=== PATIENT | male | born 1930 | race Two or more races ===

== ENCOUNTER → 2017-03-07 09:51 | Outpatient (CLI) | payer OTHER ==
[~2017-03-07 09:51] MED LIST: ASA81 MG PO; AVAPRO300 MG PO; AVAPRO75 MG PO; Avapro PO; CARVEDILOL3.125 MG PO; CIPRO500 MG PO; COZAAR100 MG PO; Cozaar PO; IMODIUM A-D2 MG PO; IRON1TAB4 PO; LIPITOR20 MG PO; LOPRESSOR 25 MG PO; PANTOPRAZOLE SO40 MG PO; PEPCID40 MG PO; PLAVIX 75MG PO; PLAVIX75 MG PO; TAMS0.4C PO; TRIPLE ANTIBIOT15 GM TP; ZOFRAN4 MG PO; [UNRECOGNIZED DRUG - OTHER]; [UNRECOGNIZED DRUG - OTHER]
== END | disposition home or self-care (01) ==
LOC: LAB 09:51
DX: D55.0 Anemia due to glucose-6-phosphate dehydrogenase [G6PD] deficiency (principal); Z92.3 Personal history of irradiation; R59.0 Localized enlarged lymph nodes; C16.9 Malignant neoplasm of stomach, unspecified; K30 Functional dyspepsia; E78.2 Mixed hyperlipidemia; R10.13 Epigastric pain; D50.0 Iron deficiency anemia secondary to blood loss (chronic); E11.65 Type 2 diabetes mellitus with hyperglycemia; E03.0 Congenital hypothyroidism with diffuse goiter; K59.09 Other constipation

== ENCOUNTER 2017-04-10 10:21 | Outpatient (CLI) | payer OTHER | END 2017-04-10 10:29 | disposition home or self-care (01) | LOC: LAB 10:21 | DX: N39.0 Urinary tract infection, site not specified (principal); R97.20 Elevated prostate specific antigen [PSA]; C61 Malignant neoplasm of prostate; D64.89 Other specified anemias ==

== ENCOUNTER → 2017-06-20 10:38 | Outpatient (CLI) | payer OTHER | END | disposition home or self-care (01) | LOC: LAB 10:38 | DX: D55.0 Anemia due to glucose-6-phosphate dehydrogenase [G6PD] deficiency (principal); R53.83 Other fatigue; C16.8 Malignant neoplasm of overlapping sites of stomach; R59.0 Localized enlarged lymph nodes; Z92.3 Personal history of irradiation; K30 Functional dyspepsia; K59.09 Other constipation ==

== ENCOUNTER 2017-07-02 13:15 | Outpatient (CLI) | payer OTHER | END 2017-07-02 13:33 | disposition home or self-care (01) | LOC: LAB 13:15 | DX: C61 Malignant neoplasm of prostate (principal) ==

== ENCOUNTER → 2017-09-11 10:47 | Outpatient (CLI) | payer OTHER | END | disposition home or self-care (01) | LOC: LAB 10:47 | DX: D64.89 Other specified anemias (principal); D55.0 Anemia due to glucose-6-phosphate dehydrogenase [G6PD] deficiency; D53.1 Other megaloblastic anemias, not elsewhere classified; E51.8 Other manifestations of thiamine deficiency; R74.0 Nonspecific elevation of levels of transaminase and lactic acid dehydrogenase [LDH]; I10 Essential (primary) hypertension ==

== ENCOUNTER 2017-11-26 09:51 | Outpatient (CLI) | payer OTHER | END 2017-11-26 10:21 | disposition home or self-care (01) | LOC: LAB 09:51 | DX: I10 Essential (primary) hypertension (principal); E78.4 Other hyperlipidemia; E07.89 Other specified disorders of thyroid; D55.0 Anemia due to glucose-6-phosphate dehydrogenase [G6PD] deficiency; E53.1 Pyridoxine deficiency; E78.2 Mixed hyperlipidemia; R74.0 Nonspecific elevation of levels of transaminase and lactic acid dehydrogenase [LDH]; E51.8 Other manifestations of thiamine deficiency; D55.8 Other anemias due to enzyme disorders; C16.8 Malignant neoplasm of overlapping sites of stomach ==

== ENCOUNTER 2018-02-07 13:03 | Outpatient (CLI) | payer OTHER | END 2018-02-07 13:10 | disposition home or self-care (01) | LOC: LAB 13:03 | DX: C61 Malignant neoplasm of prostate (principal); N39.0 Urinary tract infection, site not specified ==

== ENCOUNTER 2018-02-18 10:44 | Outpatient (CLI) | payer OTHER | END 2018-02-18 10:52 | disposition home or self-care (01) | LOC: LAB 10:44 | DX: D55.0 Anemia due to glucose-6-phosphate dehydrogenase [G6PD] deficiency (principal); R53.83 Other fatigue ==

== ENCOUNTER 2018-05-06 09:50 | Outpatient (CLI) | payer OTHER | END 2018-05-06 13:49 | disposition home or self-care (01) | LOC: LAB 09:50 | DX: D55.0 Anemia due to glucose-6-phosphate dehydrogenase [G6PD] deficiency (principal); R74.0 Nonspecific elevation of levels of transaminase and lactic acid dehydrogenase [LDH]; C16.9 Malignant neoplasm of stomach, unspecified; R53.83 Other fatigue ==

== ENCOUNTER 2018-07-15 10:00 | Outpatient (CLI) | payer OTHER | END 2018-07-16 14:32 | disposition home or self-care (01) | LOC: LAB 10:00 | DX: D55.0 Anemia due to glucose-6-phosphate dehydrogenase [G6PD] deficiency (principal); D69.6 Thrombocytopenia, unspecified; R74.0 Nonspecific elevation of levels of transaminase and lactic acid dehydrogenase [LDH] ==

== ENCOUNTER 2018-08-13 08:25 | Outpatient (CLI) | payer OTHER | END 2018-08-13 08:39 | disposition home or self-care (01) | LOC: LAB 08:25 | DX: E03.8 Other specified hypothyroidism (principal); D55.0 Anemia due to glucose-6-phosphate dehydrogenase [G6PD] deficiency; R74.0 Nonspecific elevation of levels of transaminase and lactic acid dehydrogenase [LDH]; C20 Malignant neoplasm of rectum; N40.0 Benign prostatic hyperplasia without lower urinary tract symptoms; N39.0 Urinary tract infection, site not specified; Z85.028 Personal history of other malignant neoplasm of stomach; I10 Essential (primary) hypertension ==

== ENCOUNTER 2018-10-09 08:38 | Outpatient (CLI) | payer OTHER | END 2018-10-09 08:56 | disposition home or self-care (01) | LOC: LAB 08:38 | DX: D53.0 Protein deficiency anemia (principal); D55.0 Anemia due to glucose-6-phosphate dehydrogenase [G6PD] deficiency; D63.1 Anemia in chronic kidney disease; E03.8 Other specified hypothyroidism; D69.6 Thrombocytopenia, unspecified; Z85.020 Personal history of malignant carcinoid tumor of stomach; C18.0 Malignant neoplasm of cecum; N40.0 Benign prostatic hyperplasia without lower urinary tract symptoms; Z85.46 Personal history of malignant neoplasm of prostate ==

== ENCOUNTER 2018-12-05 12:13 | Outpatient (CLI) | payer OTHER | END 2018-12-05 15:00 | disposition home or self-care (01) | LOC: LAB 12:13 | DX: D55.0 Anemia due to glucose-6-phosphate dehydrogenase [G6PD] deficiency (principal); D53.1 Other megaloblastic anemias, not elsewhere classified; R74.0 Nonspecific elevation of levels of transaminase and lactic acid dehydrogenase [LDH]; D69.8 Other specified hemorrhagic conditions; D69.49 Other primary thrombocytopenia ==

== ENCOUNTER 2019-01-18 16:12 | Inpatient (IN) | payer OTHER ==
[~2019-01-18] VITALS: Ht 167.6 cm; Wt 75.0 kg
[2019-01-31] MEDS ORDERED: AMLODIPINE BESYL5 MG PO (13:21)
[2019-01-31] MEDS ORDERED: AVAPRO300 MG PO (13:22)
[2019-01-31] MEDS ORDERED: [UNRECOGNIZED DRUG - OTHER] TD (13:22)
[2019-01-31] MEDS ORDERED: CLONIDINE TD (13:22)
[2019-01-31] MEDS ORDERED: POLY119PG PO (13:23)
== END 2019-01-31 18:53 | DRG 389 ==
LOC: ER 16:12 → MEDJ 20:48 → SURH 01-22 14:41
PROVIDERS: ADMIT Internal Medicine
PROC: 0DH67UZ Insertion of Feeding Device into Stomach, Via Natural or Artificial Opening (ICD-10-PCS; principal; 2019-01-18)
PROC: 3E0G76Z Introduction of Nutritional Substance into Upper GI, Via Natural or Artificial Opening (ICD-10-PCS; 2019-01-18)
PROC: 02HV33Z Insertion of Infusion Device into Superior Vena Cava, Percutaneous Approach (ICD-10-PCS; 2019-01-19)
PROC: 3E0436Z Introduction of Nutritional Substance into Central Vein, Percutaneous Approach (ICD-10-PCS; 2019-01-19)
PROC: BW21Y0Z Computerized Tomography (CT Scan) of Abdomen and Pelvis using Other Contrast, Unenhanced and Enhanced (ICD-10-PCS; 2019-01-20)
DX: K56.51 Intestinal adhesions [bands], with partial obstruction (principal); E44.0 Moderate protein-calorie malnutrition; G72.81 Critical illness myopathy; J45.31 Mild persistent asthma with (acute) exacerbation; C16.8 Malignant neoplasm of overlapping sites of stomach; K44.9 Diaphragmatic hernia without obstruction or gangrene; N43.2 Other hydrocele; I11.9 Hypertensive heart disease without heart failure; D63.8 Anemia in other chronic diseases classified elsewhere; D50.8 Other iron deficiency anemias; D55.0 Anemia due to glucose-6-phosphate dehydrogenase [G6PD] deficiency; K52.89 Other specified noninfective gastroenteritis and colitis; K56.0 Paralytic ileus; Z08 Encounter for follow-up examination after completed treatment for malignant neoplasm; Z85.46 Personal history of malignant neoplasm of prostate

== ENCOUNTER → 2019-02-21 10:37 | Outpatient (CLI) | payer OTHER ==
[~2019-02-21 10:37] MED LIST changes: +AMLODIPINE BESYL5 MG PO; +CLONIDINE TD; +POLY119PG PO; +[UNRECOGNIZED DRUG - OTHER] TD
== END | disposition home or self-care (01) ==
LOC: LAB 10:37
DX: N39.0 Urinary tract infection, site not specified (principal); R97.20 Elevated prostate specific antigen [PSA]; C61 Malignant neoplasm of prostate; D55.0 Anemia due to glucose-6-phosphate dehydrogenase [G6PD] deficiency; D53.8 Other specified nutritional anemias; C16.9 Malignant neoplasm of stomach, unspecified; C25.2 Malignant neoplasm of tail of pancreas

== ENCOUNTER 2019-11-03 10:09 | Outpatient (CLI) | payer OTHER | END 2019-11-03 15:11 | disposition home or self-care (01) | LOC: LAB 10:09 | PROVIDERS: ATTEND Internal Medicine Hematology & Oncology | DX: D53.8 Other specified nutritional anemias (principal); D55.0 Anemia due to glucose-6-phosphate dehydrogenase [G6PD] deficiency; I10 Essential (primary) hypertension; E03.8 Other specified hypothyroidism; N40.0 Benign prostatic hyperplasia without lower urinary tract symptoms; C61 Malignant neoplasm of prostate; C18.2 Malignant neoplasm of ascending colon ==

== ENCOUNTER 2020-03-28 15:05 | Emergency (ER) | payer OTHER ==
[~2020-03-28] VITALS: Ht 182.9 cm; Wt 68.0 kg
== END 2020-03-28 19:35 | disposition home or self-care (01) ==
LOC: ER 15:05
DX: S70.02XA Contusion of left hip, initial encounter (principal); M54.5 Low back pain; W18.09XA Striking against other object with subsequent fall, initial encounter; Y93.89 Activity, other specified; Y92.018 Other place in single-family (private) house as the place of occurrence of the external cause; Y99.8 Other external cause status

== ENCOUNTER 2020-06-14 13:27 | Emergency (ER) | payer OTHER ==
[~2020-06-14] VITALS: Ht 180.3 cm; Wt 61.2 kg
== END 2020-06-14 16:15 | disposition home or self-care (01) ==
LOC: ER 13:27
DX: R42 Dizziness and giddiness (principal)

== ENCOUNTER → 2020-10-14 09:04 | Outpatient (CLI) | payer OTHER | END | disposition home or self-care (01) | LOC: LAB 09:04 | PROVIDERS: ATTEND Specialist | DX: J45.998 Other asthma (principal); N39.0 Urinary tract infection, site not specified; E11.65 Type 2 diabetes mellitus with hyperglycemia; E03.8 Other specified hypothyroidism; N40.0 Benign prostatic hyperplasia without lower urinary tract symptoms; D64.89 Other specified anemias; Z12.11 Encounter for screening for malignant neoplasm of colon; D51.0 Vitamin B12 deficiency anemia due to intrinsic factor deficiency ==

== ENCOUNTER 2021-02-02 09:02 | Outpatient (CLI) | payer OTHER | END 2021-02-02 09:04 | disposition home or self-care (01) | LOC: LAB 09:02 | PROVIDERS: ATTEND Specialist | DX: C61 Malignant neoplasm of prostate (principal); N39.0 Urinary tract infection, site not specified; Z12.11 Encounter for screening for malignant neoplasm of colon; D64.89 Other specified anemias; D68.8 Other specified coagulation defects; D55.0 Anemia due to glucose-6-phosphate dehydrogenase [G6PD] deficiency; D63.8 Anemia in other chronic diseases classified elsewhere ==

== ENCOUNTER 2021-07-28 10:18 | Outpatient (CLI) | payer OTHER | END 2021-07-28 10:34 | disposition home or self-care (01) | LOC: RAD 10:18 | PROVIDERS: ATTEND Specialist | DX: J45.998 Other asthma (principal) ==